=== PATIENT | male | born 2000 | race African-American/Black ===

== ENCOUNTER 2018-01-17 22:18 | Emergency (ER) | payer BC ==
[2018-01-17] MEDS ORDERED: Acetaminophen 500 MG TAB ONE (23:17)
--- NOTE | 2018-01-17 23:50 | RAD ---
CHEST TWO VIEWS: 01/17/18 HISTORY: Cough and congestion. Heart size and mediastinum are within normal limits. The lungs are clear of infiltrates. Scoliotic ch abraham of the spine is noted. IMPRESSION: No active intrathoracic disease. POS: [facility]
[2018-01-17] MEDS ORDERED: Ibuprofen 200 MG TAB ONE (23:55)
== END 2018-01-18 00:17 | disposition home or self-care (01) ==
LOC: ERS 22:18
DX: R50.9 Fever, unspecified (principal); R05 Cough; R09.81 Nasal congestion
CPT/HCPCS: 71046; 87081; 87430